=== PATIENT | female | born 1950 | race African-American/Black ===

== ENCOUNTER 2017-02-06 03:05 | Observation (INO) ==
[2017-02-06] MEDS ORDERED: ALUM/MAG/SIMETH/LIDO VISC 1:1 30 ML BOTTLE PO STA (03:48)
[2017-02-06] MEDS ORDERED: PANTOPRAZOLE 40 MG VIAL IV STA (03:48)
[2017-02-06] MEDS ORDERED: SODIUM CHLORIDE 0.9% 500 ML IV STA (03:48)
[2017-02-06] MEDS ORDERED: KETOROLAC 30 MG/1 ML VIAL IV STA (03:48)
[2017-02-06] MEDS ORDERED: ONDANSETRON 4 MG/2 ML VIAL IV STA (03:48)
[2017-02-06] MEDS ORDERED: KETOROLAC 30 MG/1 ML VIAL ONE (04:19)
[2017-02-06] MEDS ORDERED: ONDANSETRON 4 MG/2 ML VIAL ONE (04:19)
[2017-02-06] MEDS ORDERED: ALUM/MAG/SIMETH/LIDO VISC 1:1 30 ML BOTTLE PO ONE (04:19)
[2017-02-06 04:53] LABS: Basophils % 0.7 % (0.0-0.8); Eosinophils # 0.1 10*3/uL (0.0-0.87); Eosinophils % 1.6 % (0.00-10.9); Hematocrit 39.3 VOL% (35.7-47.0); Hemoglobin 13.8 GM/DL (12.0-16.0); Immature Granulocytes % 0.2 %; Immature Granulocytes Absolute 0.01 #; Lymphocytes # 2.2 10*3/uL (1.4-4.0); Mean Corpuscular HGB Conc 35.1 GM/DL (32-36); Mean Corpuscular Hemoglobin 31 PG (27-34); Mean Corpuscular Volume 88.3 FL (87-102); Mean Platelet Volume 11.1 FL (9.6-12.0); Monocytes # 0.4 10*3/uL (0.11-0.8); Monocytes % 7.5 % (1.7-12.7); Platelet Count 252 T/CUMM (130-400); Red Blood Count 4.45 MC/CUMM (3.8-5.5); Red Cell Distribution Width 13.3 % (9.3-17.3); White Blood Count 5.7 T/CUMM (4-12)
[2017-02-06 05:01] LABS: Apearance,Urine CLOUDY (Clear); Bacteria,Urine Many /HPF (Few); Blood, Urine Negative (Negative); Glucose,Urine (UA) Negative (Negative); Hyaline Casts,Urine 21 /LPF (0-3); Ketones,Urine 5 mg/dL (Negative); Mucus,Urine Few /LPF (Occasional); Nitrite,Urine Negative (Negative); Protein,Urine 100 MG/DL; RBC,Urine 3 /HPF (0-4); Squamous Epithelial Cell,Urine Many /HPF (0-10); Urine Color Amber (Yellow); Urine Specific Gravity 1.028 (1.001-1.035); WBC,Urine 23 /HPF (0-6)
[2017-02-06 05:02] LABS: Bilirubin,Urine Moderate mg/dL (Negative)
[2017-02-06] MEDS ORDERED: cefTRIAXone 1,000 MG in SODIUM CHLORIDE 0.9% 100 ML IV STA (05:06)
[2017-02-06 05:13] LABS: Barbiturates Screen,Urine Negative (Negative); Benzodiazepines Screen,Urine Negative (Negative); Cannabinoid Screen,Urine Negative (Negative); Opiate Screen,Urine Positive (Negative); Phencyclidine Screen,Urine Negative (Negative)
[2017-02-06] MEDS ORDERED: cefTRIAXone 1,000 MG VIAL ONE (05:23)
[2017-02-06] MEDS ORDERED: SODIUM CHLORIDE 0.9% 100 ML IV ONE (05:23)
[2017-02-06] MEDS ORDERED: PANTOPRAZOLE 40 MG VIAL IV ONE (05:23)
[2017-02-06 05:26] LABS: Alanine Aminotransferase 27 U/L (13-56); Albumin 3.9 G/DL (3.4-5.0); Alkaline Phosphatase 101 U/L (45-117); Aspartate Amino Transferase 27 U/L (0-37); Blood Urea Nitrogen 19 MG/DL (7-18); Calcium 9.4 MG/DL (8.5-10.1); Glucose 164 MG/DL (74-106); Magnesium 1.1 MG/DL (1.8-2.4); Potassium 3.2 MMOL/L (3.5-5.1); Sodium 136 MMOL/L (136-145); Total Protein 8.4 G/DL (6.4-8.3); Troponin I Only < 0.015 NG/ML (0.00-0.045)
[2017-02-06 05:27] LABS: Amylase 88 U/L (25-115)
[2017-02-06] MEDS ORDERED: MAGNESIUM SULF RIDER 2 GM in PREMIX 1 EACH IV STA (05:28)
[2017-02-06] MEDS ORDERED: POTASSIUM CHLORIDE 20 MEQ TABLET PO STA (05:28)
[2017-02-06] MEDS ORDERED: MEROPENEM 1,000 MG in SODIUM CHLORIDE 0.9% 100 ML IV SCH (05:30)
[2017-02-06] MEDS ORDERED: POTASSIUM CHLORIDE 20 MEQ TABLET PO ONE (05:33)
[2017-02-06] MEDS ORDERED: MAGNESIUM SULF RIDER 50 ML IV ONE (05:33)
[2017-02-06] MEDS ORDERED: MEROPENEM 1,000 MG VIAL IV ONE (05:33)
[2017-02-06] MEDS ORDERED: LEVOFLOXACIN INJ 750 MG in PREMIX 1 EACH IV STA (05:34)
[2017-02-06] MEDS ORDERED: LEVOFLOXACIN INJ 150 ML IV ONE (05:35)
[2017-02-06 05:45] LABS: INR 1.1; PT Patient Result 11.7 SECS; Partial Thromboplastin Time 26.4 SECS (0-40)
[2017-02-06] MEDS ORDERED: ONDANSETRON 4 MG/2 ML VIAL IV PRN (06:35)
[2017-02-06] MEDS ORDERED: GLUCAGON 1 MG VIAL IM PRN (06:35)
[2017-02-06] MEDS ORDERED: DEXTROSE 50% 25 GM/50 ML VIAL IV PRN (06:35)
[2017-02-06] MEDS: oxyCODONE/ACETAMINOPHEN 5-325 MG TABLET PO SCH ×4 (10:03→21:06)
[2017-02-06 13:04] LABS: Apearance,Urine Slightly Hazy (Clear); Bacteria,Urine Occasional /HPF (Few); Bilirubin,Urine Negative (Negative); Blood, Urine Negative (Negative); Glucose,Urine (UA) Negative (Negative); Hyaline Casts,Urine 6 /LPF (0-3); Ketones,Urine Negative (Negative); Mucus,Urine Occasional /LPF (Occasional); Nitrite,Urine Negative (Negative); Protein,Urine Negative; RBC,Urine <1 /HPF (0-4); Squamous Epithelial Cell,Urine Occasional /HPF (0-10); Urine Color Straw (Yellow); Urine Specific Gravity 1.006 (1.001-1.035); Urine Urobilinogen < 2.0 EU/DL (0.2-1.0); WBC,Urine 3 /HPF (0-6)
[2017-02-07] MEDS ORDERED: cefTRIAXone 2,000 MG in SYRINGE 1 EACH IV SCH (04:00)
[2017-02-07 05:02] LABS: Basophils % 0.4 % (0.0-0.8); Eosinophils # 0.1 10*3/uL (0.0-0.87); Eosinophils % 2.2 % (0.00-10.9); Hematocrit 32.6 VOL% (35.7-47.0); Hemoglobin 11.4 GM/DL (12.0-16.0); Immature Granulocytes % 0.2 %; Immature Granulocytes Absolute 0.01 #; Lymphocytes # 2.1 10*3/uL (1.4-4.0); Lymphocytes % 46.5 % (21.3-54.2); Mean Corpuscular Hemoglobin 31 PG (27-34); Mean Corpuscular Volume 88.1 FL (87-102); Mean Platelet Volume 11.2 FL (9.6-12.0); Monocytes # 0.5 10*3/uL (0.11-0.8); Monocytes % 11.1 % (1.7-12.7); Neutrophils # 1.8 10*3/uL (1.4-7.4); Neutrophils % 39.6 % (38.7-73.9); Platelet Count 199 T/CUMM (130-400); Red Cell Distribution Width 13.2 % (9.3-17.3); White Blood Count 4.5 T/CUMM (4-12)
[2017-02-07 05:26] LABS: Calcium 8.4 MG/DL (8.5-10.1); Magnesium 1.3 MG/DL (1.8-2.4); Potassium 3.7 MMOL/L (3.5-5.1)
[2017-02-07] MEDS ORDERED: LEVOFLOXACIN INJ 500 MG in PREMIX 1 EACH IV SCH (07:00)
[2017-02-07] MEDS: oxyCODONE/ACETAMINOPHEN 5-325 MG TABLET PO SCH ×2 (08:40→13:08)
[2017-02-07 12:30] VITALS: BP 134/78
== END 2017-02-07 15:59 | disposition home or self-care (01) ==
LOC: N.ED 03:05 → N.EDINP 06:41 → INTOOBSV 06:41 → N.EDINP 08:06 → N.2E 08:13
PROVIDERS: ADMIT Internal Medicine Geriatric Medicine; ATTEND Internal Medicine Geriatric Medicine